=== PATIENT | male | born 1975 | race Caucasian/White ===

== ENCOUNTER 2021-06-15 11:12 | Emergency (ER) | payer MEDICAID, OTHER ==
[~2021-06-15] VITALS: Ht 182.9 cm; Wt 93.0 kg
--- NOTE | 2021-06-15 11:17 | NUR ---
PT IS IN ROOM #1B. DR COOPER WAS NOTIFIED.
[2021-06-15 12:25] LABS: HEMATOCRIT 43.9 % (36.7-47.1); MEAN CORPUSCULAR HEMOGLOBIN 32.1 uug (23.8-33.4); MEAN CORPUSCULAR VOLUME 92.6 fL (73.0-96.2); PLATELET COUNT (AUTO) 142 K/uL (152-348)
--- NOTE | 2021-06-15 12:25 | NUR ---
DR COOPER EVALUATED THE PT.
[2021-06-15 12:33] LABS: POTASSIUM 3.2 mmol/L (3.5-5.1)
[2021-06-15 12:46] LABS: BILIRUBIN,DIRECT 0.2 mg/dL (0.0-0.2); BILIRUBIN,TOTAL 0.8 mg/dL (0.2-1.0); TOTAL PROTEIN, SERUM 7.9 g/dL (6.4-8.2)
[2021-06-15] MEDS ORDERED: POTASSIUM CHLORIDE 20 MEQ TAB.PRT.SR PO ONE (13:30)
[2021-06-15] MEDS ORDERED: POTASSIUM CHLORIDE 20 MEQ TAB.PRT.SR ONE (13:55)
--- NOTE | 2021-06-15 16:24 | NUR ---
PT WAS D/C'd TO HOME AFTER DR COOPER EVALUATION. D/C INSTRUCTIONS GIVEN TO THE PT BY DR COOPER.
[2021-06-15 16:25] VITALS: BP 132/73
== END 2021-06-15 16:55 | disposition home or self-care (01) ==
LOC: ER 11:12
DX: R07.9 Chest pain, unspecified (principal); F17.210 Nicotine dependence, cigarettes, uncomplicated; Z82.49 Family history of ischemic heart disease and other diseases of the circulatory system; E87.6 Hypokalemia
CPT/HCPCS: 36415; 70030-TC; 71045; 85025; 93005; A4663

== ENCOUNTER 2021-06-18 20:10 | Emergency (ER) | payer OTHER ==
[~2021-06-18] VITALS: Ht 182.9 cm; Wt 93.4 kg
--- NOTE | 2021-06-18 20:15 | NUR ---
Pt here for cp starting at 1500 during treadmill exercise w/ tingling on thumb & index finger. Pain 05/19. Pain worsens w/ deep breaths. Was here for same symptoms 06/15/21 and dc'd. No dyspnea, n/v, dizziness, headache. No signs of distress.
[2021-06-18] MEDS ORDERED: ASPIRIN 81 MG TAB.CHEW PO ONE (21:15)
--- NOTE | 2021-06-18 21:15 | NUR ---
Dr. Ford at bedside to romeo. pt.
[2021-06-18] MEDS ORDERED: ASPIRIN 81 MG TAB.CHEW ONE (21:17)
[2021-06-18 21:18] LABS: HEMATOCRIT 39.5 % (36.7-47.1); MEAN CORPUSCULAR HEMOGLOBIN 32.9 uug (23.8-33.4); MEAN CORPUSCULAR VOLUME 92.8 fL (73.0-96.2); PLATELET COUNT (AUTO) 143 K/uL (152-348)
[2021-06-18 21:24] LABS: POTASSIUM 3.4 mmol/L (3.5-5.1)
[2021-06-18 21:29] LABS: BILIRUBIN,DIRECT 0.2 mg/dL (0.0-0.2); BILIRUBIN,TOTAL 0.7 mg/dL (0.2-1.0); TOTAL PROTEIN, SERUM 7.1 g/dL (6.4-8.2)
--- NOTE | 2021-06-18 23:30 | NUR ---
Patient discharged to home in stable condition. Written and verbal after care instructions given. Patient verbalizes understanding of instructions. Stressed follow up or return to ER for worsening s/s. Walks with steady gait. Denies SOB, chest pain, dizziness. No signs of distress. IV removed. All belongings taken.
[2021-06-19 01:13] VITALS: BP 118/76
== END 2021-06-18 23:30 | disposition home or self-care (01) ==
LOC: ER 20:11
DX: R07.89 Other chest pain (principal); Z20.822 Contact with and (suspected) exposure to COVID-19; E87.6 Hypokalemia; Z87.891 Personal history of nicotine dependence
CPT/HCPCS: 36415; 70030-TC; 71045; 83605; 83735; 85025; 93005; A4663; J7030